=== PATIENT | female | born 1995 | race Caucasian/White ===

== ENCOUNTER 2022-05-04 17:04 | Inpatient (IN) | payer MEDICAID, SELFPAY ==
[2022-05-04] VITALS (41 sets, daily range): BP systolic 92–137; BP diastolic 50–67; PULSE 75–129; TEMP 36.6–37.5; O2SAT 97–99; BMI 28.3
[2022-05-04] MEDS: LACTATED RINGERS 1000 ML 1,000 ML 1125 ML IV (17:20)
[2022-05-04] MEDS: LIDOCAINE 2% (PF) 5 ML VIAL EPIDURAL (18:15)
[2022-05-04] MEDS: ROPIVACAINE 0.2% 100 ml 100 ML 12 MG EPIDURAL (18:15)
[2022-05-04] MEDS: fentaNYL 250 MCG/5 ML inj 100 MCG EPIDURAL (18:15)
[2022-05-04 18:17] LABS: SARS PCR* Negative SARS-CoV-2 (Negative)
--- NOTE | 2022-05-04 18:27 | PM.ANBPRC ---
PFSH PFSH Social History Smoking Status: Never smoker Results Labs Labs: Laboratory Results - last 24 hr 05/04/22 17:39 SARS-CoV-2 (PCR) Negative SARS-CoV-2 Vital Signs Vital Signs: Last Vital Signs Temp 97.9 F 05/04/22 17:20 Pulse 129 H 05/04/22 18:24 BP 119/66 05/04/22 18:24 Pulse Ox 99 05/04/22 18:26 Weight: 74.843 kg Height: 162.56 cm Anesthesia Procedures Epidural Insertion Patient Location: OB Start Time: 17:45 Stop Time: 18:45 Start Date: 05/04/22 Stop Date: 05/04/22 Reason for Block: primary anesthetic Patient Position: sitting Performed By: Joseph Pappas Preanesthetic Checklist: IV checked, risks and benefits discussed, surgical consent, monitors and equipment checked, pre-op evaluation, timeout performed and anesthesia consent Prep: chlorhexidine gluconate Monitoring: blood pressure monitoring, laboratory monitor, continuous pulse oximetry and heart rate Approach: midline Vertebral Space: lumbar (1-5) Needle Type: Tuohy needle Injection Technique: continuous catheter Needle gauge: 17 Needle Length (cm): 10 cm Needle Insertion Depth (cm): 6 Catheter Gauge: 19 Catheter Type: multi-orifice Catheter at skin depth (cm): 12 Test Dose Result: negative and lidocaine 1.5% with epinephrine 1 to 200,000 Events: other
--- NOTE | 2022-05-04 18:44 | PM.OBHPLI ---
OB - H&P: HPI Labor/Induction History of Present Illness Date Seen: 05/04/22 Chief Complaint: Pauline Arrington is a 26 year old 2 para 1 at 40 2/7 weeks gestation by 1st trimester US, who presents with labor pain requesting an epidural. 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 Chief complaint: Maternity : 2 Para: 0 Narrative: Pauline Castillo is a 26 year old female who presented today at 40 2/7 weeks gestation with labor pain after attempting a home with home practice. She is here for epidural/labor pain management. Her Eve Hi, LAXMI, is present with her, along with her , James. Her labor initially began yesterday morning with irregular labor contractions. They became more regular and intense around 2 pm. Her CPM came to her home to provide labor support late afternoon/early evening. Labor continued to progress and first cervical exam was performed last evening, 6 cm, -2 station. Eve reports she assumed care and cervical exam on her first assessment this morning was 6/90/-2 but tight, firm, and not stretch without engagement of fetus. Labor contnued throughout the day but cervical dilation did not change. Patient was supported in multiple labor techniques including position, body work, and other measures to assist descent. Eve, LAXMI, reports that she thought fetus was in an optimal position but that Nury was very tired, not coping well, and unable to relax for the last few hours this evening. With this, tachycardia was noted. Cervical exam was unchanged, although more soft and stretchy. They considered home management with IV therapy but shortly after starting D5LR, patient had discussed need for pain relief and the option of transferring to the hospital was discussed. Decision was made with partner and CPM to transfer to [facility] for pain relief/epidural and possible labor augmentation if needed. At time of arrival, LAXMI reported her most recent cervical exam was 6/90/-1 with minimal change in 12+ hours. History of Present Dating criteria: based on 1st trimester US only care: good care ([facility], Home Practice) Ultrasounds: normal 1st trimester US (09/28/2021; 9.1 weeks gestation, not consistent with LMP of 07/08/2021) and normal mid trimester US complications comment: No complications Narrative: Pauline is a who received routine care beginning in early with 10 total visits. She received routine labs with no complications. 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 She is not using medication for her asthma. She reports her has been relatively uncomplicated. Records have been received and reviewed. Handoff given by home CPM, Eve Hi. Labs Blood type: A (+) positive Rubella: immune RPR/VDLR: nonreactive GBS status: negative HBsAG: negative Narrative: OB Labs: Blood type: A+, antibody screen negative. Hgb: 11.5 at 29 weeks gestation Platelets: 164 at 29 weeks gestation Rubella: Immune RPR: non-reactive HBsAg: negative HIV: negative GC/Chlamydia: negative/negative Pap (06/02/2019): negative; no hx of abnormal 1hr gtt: 121 GBS (04/13/2022): negative Review of Systems Status of ROS: Reports: 6 or more systems reviewed and unremarkable except as noted in History and below Meds Home Medications and Allergies Home Medication Comments: Zofran 4mg, PRN Allergies Allergy/AdvReac Type Severity Reaction Status Date / Time Sulfa (Sulfonamide Allergy Severe Hives Verified 05/04/22 19:26 Antibiotics) Allergies/Adverse Reaction Comments: Sulfa, Hives/rash Severe OB - H&P: Exam Physical Exam: Vital signs: Temp Pulse BP Pulse Ox 97.9 F 105 H 137/67 99 05/04/22 17:20 05/04/22 18:34 05/04/22 18:34 05/04/22 18:26 Narrative: Vitals Reviewed? Psychiatric:? Alert and oriented x3? HEENT:? Normocephalic, atraumatic? Neck:? Supple?? Lungs:? Clear to auscultation bilaterally? Heart:? Regular rate and rhythm, no murmur, rub or gallop? Abdomen:? Soft, nontender, and gravid. Vertex by Raffaele's, confirmed with cervical exam.?/-1, bulging bag Extremities:? No edema or erythema Constitutional: Constitutional: no acute distress (comfortable with epidural) OB - Problem Based A/P Additional Plan (1) Pain during labor: Status: Acute (2) Slow slope active phase of labor: Status: Acute Plan ASSESSMENT:? 26 at 40 2/7 weeks gestation? complicated by:?hx of exercise induce asthma Labor type: Spontaneous, Active labor Category 1 FHR pattern, early Labor complicated by: Protracted active labor? GBS negative? ? PLAN:? 1. Routine intrapartum cares as ordered. Discussed options of expectant managemet, AROM, or Pitocin if labor has not progressed. At this time, she has made cervical change from home CPM exam. Continue with expectant management, but discussed that AROM or Pitocin are still options if needed. Recommended recheck in 2-3 hours to evaluate continue cervical change, as active labor is already protracted. MD aware of patient arrival and current protracted labor status. 2. Monitoring per policy, continuous with epidural? 3. Continue with epidural for labor pain management. 4. Patient encouraged to reposition to promote physiologic labor and .? 5. Discussed plan with patient, partner, and home CPM. Reviewed 6. Anticipate ? Delivery/Labor/Induction Plan Plan: expectant management
--- NOTE | 2022-05-04 20:57 | PM.OBPNL ---
Subjective Date Seen: 05/04/22 Narrative: Nury is resting comfortably with epidural supported by James and her home information clerk automobile club Eve, aware of the current plan of care. No concerns or questions at this time. Objective Exam: Constitutional: Alert and oriented x3, no distress, coping well? Vital signs stable, see nurse documentation?? Abdomen: gravid, contractions palpate strong with contractions and soft between? Vital Signs: Last Vital Signs Temp 97.9 F 05/04/22 17:20 Pulse 85 05/04/22 20:51 BP 98/54 L 05/04/22 20:51 Pulse Ox 99 05/04/22 18:26 Pelvic Exam Dilation (cm): 9 Effacement (%): 90 Station: -1 Contractions Monitor mode: External Contraction Frequency: 4-6 Contraction pattern: Regular Contraction intensity: Strong/Firm Assessment Assessment: active labor Status: Category l Heart Rate Baseline: 145 Superintendent Horticulture Variability: Moderate (6-25) Monitor Accelerations: Present Monitor Decelerations: Early (occasional variable) Plan Plan: ASSESSMENT:? 26 at 40 2/7 weeks gestation? complicated by:?hx of exercise induce asthma Labor type: Spontaneous, Active labor Category 2 FHR pattern, reassuring Labor complicated by: Protracted active labor? GBS negative? ? PLAN:? 1. Routine intrapartum cares as ordered. Reviewed options of expectant management, AROM, or Pitocin if labor has not progressed. At this time, she has made cervical change from previous exam. Continue with expectant management, but discussed that AROM or Pitocin are still options if needed. Recommended recheck in 2-3 hours to evaluate continue cervical change. 2. Monitoring per policy, continuous with epidural? 3. Continue with epidural for labor pain management. 4. Patient encouraged to reposition to promote physiologic labor and .? 5. Anticipate ?
[2022-05-04] MEDS: PHENYLEPHRINE 100 MCG/ML SYRINGE IVP (22:44)
[2022-05-05] VITALS (35 sets, daily range): BP systolic 97–146; BP diastolic 51–75; PULSE 76–139; RESP 16–20; TEMP 36.4–37.6; O2SAT 96–99
[2022-05-05] MEDS: ROPIVACAINE 0.2% 100 ml 100 ML 12 MG EPIDURAL (01:50)
--- NOTE | 2022-05-05 05:13 | PM.OBPNL ---
Subjective Date Seen: 05/05/22 Narrative: Pauline coping well with contractions, comfortable with an epidural, feeling pressure. Cervical exam done approx 1 hour prior anterior left rim remained, SROM at 2234 of clear fluid. Plan to labor down and position to allow remaining cervix to resolve. Continued to be supported by her partner and lead programmer at bedside. Objective Vital Signs: Last Vital Signs Temp 98.2 F 05/05/22 03:12 Pulse 108 H 05/05/22 05:10 Resp 18 05/05/22 01:10 BP 97/56 L 05/05/22 05:10 Pulse Ox 99 05/04/22 18:26 Pelvic Exam Dilation (cm): 9 Effacement (%): 90 Station: -1 Contractions Monitor mode: External Contraction pattern: Regular Contraction intensity: Strong/Firm Assessment Assessment: active labor Status: Category l Heart Rate Baseline: 145 Monitor Accelerations: Present Monitor Decelerations: Early (occasional variable) Plan Plan: ASSESSMENT:? 26 at 40 2/7 weeks gestation? complicated by:?hx of exercise induce asthma Labor type: Spontaneous, Active labor Category 2 FHR pattern, reassuring Labor complicated by: Protracted active labor? GBS negative? ? PLAN:? 1. Routine intrapartum cares as ordered. At this time, she has made cervical change from previous exam and SROM with clear fluid. Continue with expectant management,. 2. Monitoring per policy, continuous with epidural? 3. Continue with epidural for labor pain management. 4. Patient encouraged to reposition to promote physiologic labor and .? 5. Anticipate ?
--- NOTE | 2022-05-05 05:26 | PM.OBPRCVD ---
Procedure Delivery date: 05/05/22 Procedure Done: only Events: Other (protracted labor) Intrapartal Events: Prolonged Labor >20 Hrs and Prolonged 2nd Stage >2.5 Hrs Delivery monitor: external FHT and external uterine Route of delivery: Laceration description: Labial (clitoral gutierrez avulsion right side) Delivery repair: Vicryl Estimated blood loss (mL): 500 Anesthesia type: Epidural Disposition: floor Narrative: katty is a 26 year-old G2 now P1011 admitted on 05/04/22 at 40 Weeks, 2 Days gestation for labor pain management after [facility] a [facility].? Received epidural on admission, normal progress after admission. ? Labor Analgesia: Epidural ? Pitocin:?No ? Labor onset:? 05/03/22 at 1400 per pt report ? Complete:? 05/05/22 at 0002 ? Pushing:? 0005 ? heart tones during second stage were Category II with recurrent variable decels good return to baseline between and accels present with moderate variability. During the final part of the second stage, variables were notably deeper and variability was decreased. ? of a viable female at 0354 in left tilt semi reclined on the bed. Vertex delivered OA. No nuchal cord or shoulder. Body delivered easily and without incident. Infant passed to mothers abdomen with a vigorous cry. Per patient request, cord remained intact and attached to for greater than one hour. APGARS were 8 at one minute and 9 at five minutes respectively. Intact placenta with a 3 vessel cord delivered spontaneously at 0427. Fundus firm. right clitoral gutierrez avulsion identified and repaired in typical fashion. Small gushes of bleeding noted during repair, bladder emptied and improved bleeding. Patient declined Pitocin. QBL 500 cc. Mother and baby stable; mother plans to breastfeed. Infant weight pending. Placenta delivered spontaneously and complete at 0427 with a 3 vessel cord. ? Mother and were stable after delivery. ? Lacerations:? right clitoral gutierrez avulsion, repaired with 4-0 Vicryl. ? Blood loss: 500 mL. Blood loss measurement type: QBL ? Sponge and needles counts are correct. Infant Gender: Female presentation: vertex Placental Delivery Description: Spontaneous Cord Description: 3 Vessels OB Vag Delivery Procedures Additional Procedures ECV: No Cook Catheter Insertion: No NST: No D&C: No Laceration Repair: Yes Tubal Ligation : No Other: No
[2022-05-05] MEDS: IBUPROFEN 600 MG TABLET PO ×2 (09:04→19:32)
[2022-05-05] MEDS: ACETAMINOPHEN 500 MG TABLET 1000 MG PO (11:23)
[2022-05-06 01:03] VITALS: BP 81/48; PULSE 69; RESP 14; TEMP 36.8; O2SAT 97
[2022-05-06] MEDS: LANOLIN CREAM 1 APPLIC TOPICAL (04:42)
[2022-05-06] MEDS: IBUPROFEN 600 MG TABLET PO ×2 (04:43→13:31)
[2022-05-06 04:56] VITALS: BP 106/67; PULSE 86; RESP 16; TEMP 36.8; O2SAT 98
[2022-05-06 09:30] VITALS: BP 110/69; PULSE 74; RESP 16; TEMP 36.5; O2SAT 97
--- NOTE | 2022-05-06 10:03 | PM.OBDSVD1 ---
DS: Providers Provider Time Seen by Provider: 10:03 Date Seen: 05/06/22 Date of admission: 05/04/22 17:04 Primary care physician: Not a Local Provider Admitting Clinician: Odilia Lomeli CNM Attending Physician on discharge: Radha Thompson CNM Date of Discharge: 05/06/22 DS: Diagnosis Discharge Diagnosis (1) state: Status: Acute (2) Lactating mother: Status: Acute Exam Narrative: Exam Narrative: Objective: VSS, afebrile GENERAL APPEARANCE: ?normal affect, alert, no distress MOOD: ?appropriate HEENT: normocephalic, neck supple, full ROM CHEST: ?Symmetrical chest wall movement. ?Normal respiratory effort. ?Clear to auscultation HEART: ?regular rate and rhythm ABDOMEN: ?soft, non-tender. Uterine fundus is firm, at Umbilicus, Midline and is appropriate for the stage of recovery. ?Bowel sounds present. PERINEUM: exam deferred per pt. ?mild edema of the perineum, clitoral weaver avulsion that is healing well per pt. EXTREMITIES: ?normal and no edema Const: Vital Signs, click to edit/add: Vital Signs - 24 hr 05/05/22 11:45 05/05/22 16:50 05/05/22 20:39 Temperature 98.3 F 97.5 F L 98.2 F Pulse Rate [Blood Pressure Cuff] 89 86 90 Respiratory Rate 16 16 16 Blood Pressure [Le ft Arm] 104/61 103/65 104/65 Pulse Oximetry 96 97 Oxygen Delivery Me thod Room Air Room Air Room Air 05/06/22 01:03 05/06/22 04:56 05/06/22 09:30 Temperature 98.2 F 98.2 F 97.7 F Pulse Rate [Blood Pressure Cuff] 69 86 74 Respiratory Rate 14 16 16 Blood Pressure [Le ft Arm] 81/48 L 106/67 110/69 Pulse Oximetry 97 98 97 Oxygen Delivery Me thod Room Air Room Air Room Air Documenting provider has reviewed patient's vital signs: yes OB - DS: Summary Hospital Course Hospital Course: Subjective: Nury is a 26 y.o. G2 now P1 who was admitted to L & D, from a planned home with [facility], for protracted 1st stage of labor and desire for an epidural. ?She had an uncomplicated NVD. The patient feels well. ?The pain is well controlled with current medications. ?She has no new complaints. ?She is breast feeding and reports things are going well.? the patient has done well.? Vitals have been stable.? She has remained afebrile.? Has a good appetite, is tolerating a general diet. ?She is voiding without difficulty.? She is passing gas and has not had a bowel movement.? She is ambulating and denies any dizziness.? Has small amount of rubra lochia. ?She is considering an IUD for prevention. Problems: G2 now P1 Lactating Mother plan: Discharge home with baby. 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 , may follow up with if needed Peripartum Data delivery method: Vaginal Laceration description: None (Clitoral Weaver avulsion, repaired) complications: none [place] Infant Gender: Female Infant Discharge Plan: Home Status at Discharge Functional status at discharge: independent ambulation Overall status at discharge: patient is progressing back to baseline Time Spent with Patient Time attestation: Total time spent providing and/or coordinating discharge services: Time spent: Less than 30 minutes Discharge Plan Discharge Disposition: Home, Self-Care Date of Admission: 05/04/22 17:04 Attending Provider on Discharge: Radha Thompson Primary Care Provider: Provider,Not a Local Condition: Stable Anticipated Discharge Date/Time: 05/06/22 10:15 Discharge Medications: New docusate sodium 100 mg Capsule 100 mg PO BID PRNQty: 100 0RF ibuprofen 600 mg Tablet 600 mg PO Q6H PRNQty: 60 0RF acetaminophen 500 mg Tablet 1,000 mg PO Q6H PRN (Reason: pain/fever) Qty: 0 0RF Discharge Orders: Discharge Order (Routine); Ordered 05/06/22 Ordered By: Radha Thompson Patient Education: OB Over the Counter Medication Information, OB Vaginal/Breast Feeding Additional Instructions: 2 & 6 week visits with [facility], or with [facility], per pt preference Activity Level: Activity as Tolerated Discharge Diet: Regular Follow Up Appointments: Provider,Not a Local [Primary Care Provider] - Forms: MediaPhy Info Instructions
[2022-05-06] MEDS: DOCUSATE SODIUM 100 MG CAPSULE PO (12:18)
[2022-05-06] MEDS: TETANUS/DIPHTH/PERTUSSIS 0.5 ML SYRINGE IM (12:18)
[2022-05-06 15:50] VITALS: BP 100/63; PULSE 78; RESP 18; TEMP 36.8; O2SAT 97
[2022-05-06] MEDS: ACETAMINOPHEN 500 MG TABLET 1000 MG PO (16:50)
== END 2022-05-06 18:55 | disposition home or self-care (01) | DRG 807 ==
PROVIDERS: Admitting Provider Advanced Practice Midwife; Visit Provider Advanced Practice Midwife
DX: O70.0 First degree perineal laceration during delivery (principal); Z37.0 Single live birth; Z3A.40 40 weeks gestation of pregnancy; O99.52 Diseases of the respiratory system complicating childbirth
CPT/HCPCS: 1967; 87635; 90715; A9270; J2370; J2795; J3010; J7120

== ENCOUNTER 2022-11-09 11:00 | Outpatient (RCR) | payer MEDICAID, SELFPAY | END 2023-03-09 23:59 | disposition home or self-care (01) | PROVIDERS: Visit Provider Family Medicine | DX: N81.89 Other female genital prolapse (principal); N39.46 Mixed incontinence; R27.9 Unspecified lack of coordination; N94.10 Unspecified dyspareunia; M25.552 Pain in left hip; Z51.89 Encounter for other specified aftercare | CPT/HCPCS: 97110; 97112; 97140; 97162; 97535 ==